=== PATIENT | male | born 1935 | race Two or more races ===

== ENCOUNTER → 2018-08-13 | Outpatient (CLI) | payer OTHER, MEDICAID ==
[~2018-08-13] MED LIST: ALPR0.25 PO; ASPI-231 PO; ATOR20TA PO; OMEP20TA34; TRAM-297 PO
== END | disposition home or self-care (01) ==
LOC: US 10:37
PROVIDERS: ATTEND Internal Medicine
DX: C96.9 Malignant neoplasm of lymphoid, hematopoietic and related tissue, unspecified (principal); C79.89 Secondary malignant neoplasm of other specified sites; F41.9 Anxiety disorder, unspecified; Z88.0 Allergy status to penicillin; Z85.46 Personal history of malignant neoplasm of prostate; Z98.890 Other specified postprocedural states
CPT/HCPCS: 10005; 10022; 38505; 76942